=== PATIENT | male | born 1980 | race Caucasian/White ===

== ENCOUNTER 2021-04-07 11:16 | Emergency (ER) | payer MEDICAID ==
[~2021-04-07] VITALS: Ht 165.1 cm; Wt 77.0 kg
[2021-04-07] MEDS ORDERED: IBUPROFEN 600MG TABLET PO STA (12:40)
[2021-04-07] MEDS ORDERED: NAPR-681 PO (12:55)
[2021-04-07] MEDS ORDERED: HYDR-3735 PO (12:55)
[2021-04-07 13:13] VITALS: BP 129/81
== END 2021-04-07 13:16 | disposition home or self-care (01) ==
LOC: ER 11:16
DX: M25.562 Pain in left knee (principal); M25.561 Pain in right knee; G47.00 Insomnia, unspecified; F41.9 Anxiety disorder, unspecified
CPT/HCPCS: 99283

== ENCOUNTER 2021-11-01 08:59 | Emergency (ER) | payer MEDICAID ==
[~2021-11-01] VITALS: Ht 170.2 cm; Wt 68.0 kg
[~2021-11-01 08:59] MED LIST: HYDR-3735 PO; NAPR-681 PO
[2021-11-01 10:30] LABS: BASOPHILS % 0.7 % (0.0-2.0); HEMATOCRIT. 48.4 % (42.0-52.0); HEMOGLOBIN. 16.2 g/dL (14.0-18.0); LYMPHOCYTES % 14.2 % (20.0-50.0); MEAN CORPUSCULAR HEMOGLOBIN 30.5 pg (28.0-32.0); MEAN CORPUSCULAR VOLUME 90.9 fL (80.0-94.0); MEAN PLATELET VOLUME 9.1 fl (7.4-10.4); MONOCYTES % 7.9 % (2.0-8.0); NEUTROPHILS % 77.2 % (40.0-76.0); PLATELET 250 x1000/uL (130-400); RED BLOOD CELL COUNT 5.32 mill/uL (4.7-6.1); RED CELL DISTRIBUTION WIDTH 13.8 % (11.6-14.6)
[2021-11-01 10:37] LABS: CHLORIDE 102 mEq/L (98-107)
[2021-11-01 12:50] VITALS: BP 123/73
== END 2021-11-01 12:51 | disposition home or self-care (01) ==
LOC: ER 08:59
DX: J06.9 Acute upper respiratory infection, unspecified (principal); Z20.822 Contact with and (suspected) exposure to COVID-19
CPT/HCPCS: 36415; 71045; 80048; 84484; 85025; 87426; 87804; 93005; 99285

== ENCOUNTER 2021-11-05 12:10 | Emergency (ER) | payer MEDICAID ==
[~2021-11-05] VITALS: Ht 170.2 cm; Wt 77.0 kg
[2021-11-05] MEDS ORDERED: ONDANSETRON 4MG ODT PO ONE (16:45)
[2021-11-05] MEDS ORDERED: IBUPROFEN 400MG TABLET PO ONE (16:45)
[2021-11-05] MEDS ORDERED: IBUP-2028 MT (17:52)
[2021-11-05 18:14] VITALS: BP 124/86
== END 2021-11-05 18:16 | disposition home or self-care (01) ==
LOC: ER 12:10
DX: R51.9 Headache, unspecified (principal); F41.9 Anxiety disorder, unspecified
CPT/HCPCS: 70450; 99284; Q0162

== ENCOUNTER 2022-01-11 08:52 | Emergency (ER) | payer MEDICAID ==
[~2022-01-11] VITALS: Ht 165.1 cm; Wt 77.0 kg
[~2022-01-11 08:52] MED LIST changes: +IBUP-2028 MT
[2022-01-11] MEDS ORDERED: ACETAMINOPHEN 325MG TABLET PO ONE (09:15)
[2022-01-11 09:32] LABS: BASOPHILS % 0.7 % (0.0-2.0); HEMATOCRIT. 44.4 % (42.0-52.0); HEMOGLOBIN. 15.4 g/dL (14.0-18.0); LYMPHOCYTES % 31.4 % (20.0-50.0); MEAN CORPUSCULAR HEMOGLOBIN 31.6 pg (28.0-32.0); MEAN CORPUSCULAR VOLUME 91.1 fL (80.0-94.0); MEAN PLATELET VOLUME 9.5 fl (7.4-10.4); MONOCYTES % 5.8 % (2.0-8.0); NEUTROPHILS % 56.1 % (40.0-76.0); PLATELET 280 x1000/uL (130-400); RED BLOOD CELL COUNT 4.87 mill/uL (4.7-6.1)
[2022-01-11 09:38] LABS: CHLORIDE 108 mEq/L (98-107)
[2022-01-11 10:41] VITALS: BP 146/71
== END 2022-01-11 10:42 | disposition home or self-care (01) ==
LOC: ER 08:52
DX: R20.2 Paresthesia of skin (principal); R51.9 Headache, unspecified; F41.9 Anxiety disorder, unspecified
CPT/HCPCS: 36415; 80053; 85025; 99284

== ENCOUNTER 2023-04-11 13:48 | Emergency (ER) | payer MEDICAID ==
[~2023-04-11] VITALS: Ht 167.6 cm; Wt 80.0 kg
[2023-04-11 14:16] VITALS: TEMP 98.5; O2SAT 96
[2023-04-11 15:45] VITALS: BP 123/88; PULSE 78; RESP 18
[2023-04-11] MEDS ORDERED: LIDOCAINE HCL/PF 1% 10 MG/ML 5ML VIAL INFIL ONE (15:45)
[2023-04-11] MEDS ORDERED: TETANUS, DIPHTHERIA, PERTUSSIS VAC/PF 0.5ML (>10YR OLD) IM ONE (15:45)
[2023-04-11] MEDS ORDERED: BACITRACIN ZINC OINT UDPKT TOP ONE (15:45)
[2023-04-11] MEDS ORDERED: IBUPROFEN 600MG TABLET PO ONE (15:45)
[2023-04-11] MEDS ORDERED: IBUP-2029 PO (17:58)
[2023-04-11] MEDS ORDERED: CEPH500C2 PO (17:58)
== END 2023-04-11 18:42 | disposition home or self-care (01) ==
LOC: ER 13:51
DX: S61.412A Laceration without foreign body of left hand, initial encounter (principal); W45.8XXA Other foreign body or object entering through skin, initial encounter; Y93.89 Activity, other specified; Y92.89 Other specified places as the place of occurrence of the external cause; Y99.8 Other external cause status
CPT/HCPCS: 99283; 73130; 90715; 12002; 90471; J3490

== ENCOUNTER 2023-04-20 16:47 | Emergency (ER) | payer MEDICAID ==
[~2023-04-20] VITALS: Ht 160 cm; Wt 73.0 kg
[~2023-04-20 16:47] MED LIST changes: +CEPH500C2 PO; +IBUP-2029 PO
[2023-04-20 17:18] VITALS: BP 136/81; PULSE 94; RESP 16; TEMP 98.3; O2SAT 97
== END 2023-04-20 19:30 | disposition home or self-care (01) ==
LOC: ER 16:47
DX: S61.412D Laceration without foreign body of left hand, subsequent encounter (principal); Z48.02 Encounter for removal of sutures; X58.XXXD Exposure to other specified factors, subsequent encounter
CPT/HCPCS: 99281; Z7610